=== PATIENT | male | born 1950 | race Caucasian/White ===

== ENCOUNTER → 2016-07-25 19:48 | Outpatient (CLI) | payer MEDICARE ==
[2016-07-27 10:19] LABS: IMMUNOGLOBULIN G 1155 mg/dL (700-1600); IMMUNOGLOBULIN M 498 mg/dL (20-172)
== END | disposition home or self-care (01) ==
LOC: D.LABREF 19:48
PROVIDERS: Family Medicine
DX: S70.261A Insect bite (nonvenomous), right hip, initial encounter (principal); R31.9 Hematuria, unspecified

== ENCOUNTER → 2016-08-08 16:01 | Outpatient (CLI) | payer MEDICARE | END | disposition home or self-care (01) | LOC: D.LABREF 16:01 | DX: B99.9 Unspecified infectious disease (principal); N39.0 Urinary tract infection, site not specified ==

== ENCOUNTER → 2016-10-20 18:27 | Outpatient (CLI) | payer MEDICARE | END | disposition home or self-care (01) | LOC: D.LABREF 18:27 | DX: Z11.59 Encounter for screening for other viral diseases (principal) ==

== ENCOUNTER 2016-12-08 05:56 | Day surgery (SDC) | payer MEDICARE ==
[~2016-12-08 05:56] MED LIST: FLOMAX0.4 MG PO
[2016-12-08 07:22] VITALS: BP 124/68; BMI 28.2
[2016-12-08 07:26] LABS: BASOPHILS 0.2 % (0-2); EOSINOPHILS 4.4 % (0-7); HEMATOCRIT 42.8 % (42.0-54.0); HEMOGLOBIN 14.3 g/dL (13.5-17.5); IMMATURE GRANULOCYTES 0.2 % (0-5); MCH 31.4 pg (26.0-34.0); MCHC 33.4 g/dL (31.0-37.0); MCV 94.1 fL (80.0-100.0); MONOCYTES 8.7 % (2-11); NEUTROPHILS 52.5 % (40-80); PLATELET COUNT 158 10x3/uL (130-400); RBC 4.55 10x6/uL (4.20-6.10); RDW 13.8 % (11.5-14.5); WBC 4.5 10x3/uL (4.8-10.8)
[2016-12-08 07:49] LABS: ANION GAP 12.1 mmol/L (8-16); CALCIUM 8.4 mg/dL (8.5-10.1); CARBON DIOXIDE 26.6 mmol/L (21.0-32.0); CREATININE - SERUM 1.2 mg/dL (0.6-1.3); POTASSIUM - SERUM 3.7 mmol/L (3.5-5.1)
[2016-12-08] MEDS ORDERED: HYDROCODONE-APA1 TAB PO (09:21)
--- NOTE | 2016-12-08 11:01 | NUR ---
IV DC WITH CATHER TIP INTACT
--- NOTE | 2016-12-15 14:02 | OP ---
PATIENT NAME: ALTAF FRENCH MEDICAL RECORD: [id number] :48 LOCATION:[facility] ADMISSION DATE: SURGEON: JIM SHIPLEY MD DATE OF OPERATION: 12/08/2016 PREOPERATIVE DIAGNOSES: 1. Right buttock sebaceous cyst. 2. Benign prostatic hypertrophy. POSTOPERATIVE DIAGNOSES: 1. Right buttock sebaceous cyst. 2. Benign prostatic hypertrophy. PROCEDURE: Excision of 4 cm right buttock sebaceous cyst. SURGEON: Jim Shipley MD REPORT OF PROCEDURE: The patient's right hip and buttock were prepped and draped in sterile fashion. An ovoid transverse incision was made overlying this sebaceous cyst. Electrocautery was used to dissect through the subcutaneous tissues and we tediously came around the cystic cavity. The cyst was quite deep and it was circular in nature. It was about 4 cm in greatest diameter. We were able to get completely around the cyst without ever penetrating the cyst wall. The cyst was then sent off for permanent specimen. The subcutaneous tissues were inspected and any bleeding was treated with electrocautery. We irrigated out the wound with normal saline. The skin was then closed transversely using interrupted 0 nylons in a vertical mattress fashion. A total of 10 mL of 0.25% Marcaine plain was infused into the surrounding tissues and the wound was dressed appropriately. COMPLICATIONS: None. CONDITION: Stable. ANESTHESIA: General endotracheal and local. BLOOD LOSS: Minimal. TRANSINT:[id number] Voice Confirmation ID: [id number] DOCUMENT ID: [id number] JIM SHIPLEY MD at 1402 CC: ZA CARRASQUILLO DO [id number] DICTATION DATE: 12/08/16923 MANUFACTURING CONTROLLER: 12/08/16 1245 [facility] 12/08/16 [id number] [place] [address]
== END 2016-12-08 11:11 | disposition home or self-care (01) ==
LOC: D.OPS 05:56 → D.PAN 08:00 → D.OPS 11:11 → D.PAN 12:15
PROVIDERS: Surgery
DX: L72.3 Sebaceous cyst (principal); K21.9 Gastro-esophageal reflux disease without esophagitis; Z01.812 Encounter for preprocedural laboratory examination

== ENCOUNTER → 2017-01-01 12:37 | Outpatient (CLI) | payer MEDICARE ==
[2016-12-08 07:22] VITALS: BMI 28.2
[~2017-01-01 12:37] MED LIST changes: +HYDROCODONE-APA1 TAB PO
== END | disposition home or self-care (01) ==
LOC: D.CT 12:37
DX: H92.02 Otalgia, left ear (principal); R59.0 Localized enlarged lymph nodes